=== PATIENT | female | born 1990 | race Caucasian/White ===

== ENCOUNTER 2018-09-23 16:27 | Emergency (ER) | payer OTHER ==
[~2018-09-23] VITALS: Ht 157.5 cm; Wt 59.0 kg
--- NOTE | 2018-09-23 16:30 | NUR ---
PT TO ER BED 02 C/O ABDOMINAL PAIN, INTERMITTENT AND DIARRHEA X 5 DAYS S/P EATING FISH TACOS. ALSO ENDORSES NAUSEA X TODAY. WAS AT URGENT CARE TODAY AND WAS ADVISED TO GO TO ED. PLACED ON MONITOR. VSS AWAITING MD WILLIS.
--- NOTE | 2018-09-23 17:31 | NUR ---
[place] AT BEDSIDE FOR EVAL.
--- NOTE | 2018-09-23 17:38 | NUR ---
U/S TECH AT BEDSIDE FOR ABDOMINAL ULTRASOUND.
[2018-09-23 17:46] LABS: APPEARANCE,URINE Clear (CLEAR); BILIRUBIN,URINE Negative (NEGATIVE); BLOOD, URINE Trace-intact Ery/uL (NEGATIVE); COLOR,URINE Yellow (YELLOW); KETONES,URINE 15 (NEGATIVE); LEUKOCYTE ESTERASE ,URINE Negative (NEGATIVE); NITRITE, URINE Negative (NEGATIVE); PROTEIN,URINE Negative (NEGATIVE); UGLUCOSE Negative (NEGATIVE); UROBILINOGEN,URINE 0.2 EU/dL (0.2)
[2018-09-23 18:08] LABS: BASOPHILS % (AUTO) 0.5 % (0.0-2.0); HEMATOCRIT 39 % (33-45); LYMPHOCYTES # (AUTO) 2.6 /CMM (0.8-4.8); LYMPHOCYTES % (AUTO) 41.1 % (20.0-44.0); MEAN CORPUSCULAR HGB CONC 33 g/dl (31.0-36.0); MEAN CORPUSCULAR VOLUME 85 fL (82-100); MONOCYTES # (AUTO) 0.6 /CMM (0.1-1.30); MONOCYTES % (AUTO) 9.8 % (2.0-12.0); NEUTROPHILS % (AUTO) 47.6 % (43.0-81.0); PLATELET COUNT (AUTO) 293 /CMM (150-450); RED BLOOD CELL COUNT(AUTO) 4.62 MIL/uL (4.0-5.2); WHITE BLOOD COUNT (AUTO) 6.3 K/uL (4.3-11.0)
[2018-09-23 18:16] LABS: CALCIUM, SERUM 8.5 mg/dL (8.5-10.1); CREATININE 0.7 mg/dL (0.6-1.3)
[2018-09-23 18:17] LABS: BACTERIA,URINE None seen /HPF (None Seen); RBC,URINE 0-2 /HPF (0-2); SQUAMOUS EPITHELIAL CELL,UR None Seen /HPF (None Seen); WBC,URINE NONE SEEN /HPF (0-3)
[2018-09-23 18:22] LABS: ALBUMIN 3.4 g/dL (3.4-5.0); BILIRUBIN,DIRECT 0.1 mg/dL (0.0-0.2); BILIRUBIN,TOTAL 0.2 mg/dL (0.2-1.0); TOTAL PROTEIN, SERUM 6.8 g/dL (6.4-8.2)
[2018-09-23] MEDS ORDERED: IOHEXOL-300 100 ML VIAL IV ONE (18:25)
[2018-09-23] MEDS ORDERED: IV NS 0.9% 250 ML IV ONE (18:26)
[2018-09-23] MEDS ORDERED: CT SWABBABLE VALVE TRANS SET 1 EA INFUS.SET MC ONE (18:26)
--- NOTE | 2018-09-23 18:35 | NUR ---
PT TO RADIOLOGY FOR ABDOMINAL CT SCAN VIA [facility].
--- NOTE | 2018-09-23 19:14 | NUR ---
REPORT GIVEN TO [facility] CLEMENS FOR RUPAL.
--- NOTE | 2018-09-23 20:10 | NUR ---
Patient discharged to home in stable condition. Written and verbal after care instructions given. Patient verbalizes understanding of instruction.IV removed. Catheter intact and site benign. Pressure and 4x4 applied to site. No bleeding noted. Pt ambulatory with steady gait.
[2018-09-23 20:11] VITALS: BP 126/70
[2018-09-23] MEDS ORDERED: CIPROFLOXACIN HCL 500 MG TABLET PO ONE (20:30)
== END 2018-09-23 20:13 | disposition home or self-care (01) ==
LOC: ER 16:40
DX: R10.13 Epigastric pain (principal); R10.84 Generalized abdominal pain; R10.30 Lower abdominal pain, unspecified; R11.2 Nausea with vomiting, unspecified; R19.7 Diarrhea, unspecified
CPT/HCPCS: 36415; 76700-TC; 80048-TC; 80076-TC; 81000-TC; 83690-TC; 84703-TC; 85025-TC; J7050; Q9967